=== PATIENT | male | born 1980 | race Caucasian/White ===

== ENCOUNTER → 2022-07-08 | Outpatient (CLI) | payer MEDICAID | END | disposition home or self-care (01) | LOC: RAD 15:30 | PROVIDERS: ATTEND Internal Medicine | DX: M16.11 Unilateral primary osteoarthritis, right hip (principal); I96 Gangrene, not elsewhere classified; Q65.89 Other specified congenital deformities of hip ==

== ENCOUNTER → 2022-07-18 | Outpatient (CLI) | payer MEDICAID ==
[2022-07-19 05:06] LABS: HBSAG Negative (Negative); HEP B CORE AB, IGM Negative (Negative); HEPATITIS C ANTIBODY Non Reactive (Non Reactive)
== END | disposition home or self-care (01) ==
LOC: LAB 09:59
PROVIDERS: ATTEND Internal Medicine
DX: R74.8 Abnormal levels of other serum enzymes (principal)

== ENCOUNTER 2023-04-15 13:24 | Emergency (ER) | payer MEDICAID ==
[~2023-04-15] VITALS: Ht 187.9 cm; Wt 93.0 kg
[2023-04-15] MEDS ORDERED: PENICILLIN VK500 MG PO (14:54)
== END 2023-04-15 15:08 | disposition home or self-care (01) ==
LOC: ED 13:24
DX: K08.89 Other specified disorders of teeth and supporting structures (principal); I10 Essential (primary) hypertension; F32.A Depression, unspecified; E78.00 Pure hypercholesterolemia, unspecified; Z88.2 Allergy status to sulfonamides